=== PATIENT | male | born 2000 | race Caucasian/White ===

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

== ENCOUNTER → 2024-05-14 | Outpatient (CLI) | payer BC | LOC: M RAD 14:17 | PROVIDERS: ATTEND Internal Medicine | DX: N13.5 Crossing vessel and stricture of ureter without hydronephrosis (principal) ==